=== PATIENT | male | born 1955 | race Caucasian/White ===

== ENCOUNTER 2024-05-24 12:50 | Emergency (ER) | payer MEDICARE ==
[~2024-05-24] VITALS: Ht 172.7 cm; Wt 59.8 kg
[2024-05-24 15:23] VITALS: BP 168/90; PULSE 79; RESP 15; TEMP 98.2; O2SAT 99
== END 2024-05-24 15:25 | disposition home or self-care (01) ==
LOC: ER 12:51
DX: U07.1 COVID-19 (principal)
CPT/HCPCS: 71045; 99283

== ENCOUNTER 2024-10-21 14:33 | Emergency (ER) | payer MEDICARE ==
[~2024-10-21] VITALS: Ht 172.7 cm; Wt 60.4 kg
[2024-10-21 15:06] VITALS: TEMP 98.4
[2024-10-21 15:58] LABS: BASOPHILS # (AUTO) 0.1 X10'3 (0-0.2); BASOPHILS % (AUTO) 0.8 % (0-1); EOSINOPHILS # (AUTO) 0.1 X10'3 (0-0.9); EOSINOPHILS % (AUTO) 1.1 % (0-6); HEMATOCRIT 42.2 % (42.0-52.0); HEMOGLOBIN 14.5 g/dl (14.0-17.9); LYMPHOCYTES # (AUTO) 1.3 X10'3 (1.1-4.8); LYMPHOCYTES % (AUTO) 16.7 % (21-51); MEAN CORPUSCULAR HEMOGLOBIN 31.1 PG (27.0-31.0); MEAN CORPUSCULAR HGB CONC 34.4 g/dL (33.0-36.5); MEAN CORPUSCULAR VOLUME 90.4 FL (78-98); MEAN PLATELET VOLUME 7.9 FL (7.4-10.4); MONOCYTES # (AUTO) 0.7 X10'3 (0-0.9); MONOCYTES % (AUTO) 9.2 % (2-12); NEUTROPHILS # (AUTO) 5.6 X10'3 (1.8-7.7); NEUTROPHILS % (AUTO) 72.2 % (42-75); PLATELET COUNT 301 X10'3 (140-440); RED BLOOD COUNT 4.67 X10'6 (4.70-6.10); RED CELL DISTRIBUTION WIDTH 13.4 % (11.5-14.5); WHITE BLOOD COUNT 7.8 X10'3 (4.5-11.0)
[2024-10-21 16:29] LABS: ALANINE AMINOTRANSFERASE 28 U/L (12-78); ALBUMIN 3.9 G/DL (3.4-5.0); ALBUMIN/GLOBULIN RATIO 1.1 (1.1-1.5); ALKALINE PHOSPHATASE 71 IU/L (46-116); ANION GAP 11 (8-16); ASPARTATE AMINO TRANSFERASE 17 U/L (10-37); BILIRUBIN,TOTAL 0.9 MG/DL (0.1-1.0); BLOOD UREA NITROGEN 14 MG/DL (7-18); BUN/CREATININE RATIO 15.4 (10.0-20.0); CALCIUM 9.3 MG/DL (8.5-10.1); CHLORIDE 103 MMOL/L (99-107); CREATININE 0.91 MG/DL (0.60-1.10); GLUCOSE 110 MG/DL (70-104); LIPASE 36 U/L (16-77); POTASSIUM 4.1 MMOL/L (3.5-5.1); SODIUM 139 MMOL/L (135-145); TOTAL CARBON DIOXIDE 24.8 MMOL/L (24-32); TOTAL PROTEIN 7.5 G/DL (6.4-8.2); eCRCL 65 ML/MIN; eGFR 82 ML/MIN
[2024-10-21 16:36] LABS: APTT 24 SECONDS (22-32); INR 1.1 INR; PROTHROMBIN TIME 11.2 SECONDS (9.0-12.0)
[2024-10-21 17:24] LABS: BILIRUBIN,URINE NEGATIVE (Neg); CLARITY,URINE CLEAR (Clear); COLOR,URINE STRAW (Yellow); GLUCOSE, URINE NEGATIVE (Neg); KETONES,URINE NEGATIVE (Neg); LEUKOCYTE ESTERASE ,URINE NEGATIVE (Neg); NITRITES, URINE NEGATIVE (Neg); OCCULT BLOOD,URINE LARGE (Neg); PROTEIN,URINE NEGATIVE (Neg); UROBILINOGEN,URINE 0.2 E.U/dL (0.2-1.0)
[2024-10-21 17:32] LABS: UA COLLECTION TYPE CLN CATCH MIDSTREAM
[2024-10-21 17:37] LABS: BACTERIA,URINE NONE SEEN /HPF (Neg); MUCUS STRANDS NONE SEEN /LPF (Neg); SQUAMOUS EPITHELIAL CELL,UR NONE SEEN /LPF (FEW); WBC,URINE 0-4 /HPF (0-4)
[2024-10-21] MEDS ORDERED: FLO0.4C PO (17:59)
[2024-10-21 18:24] VITALS: BP 146/77; PULSE 76; RESP 18; O2SAT 98
== END 2024-10-21 18:26 | disposition home or self-care (01) ==
LOC: ER 14:34
DX: N40.1 Benign prostatic hyperplasia with lower urinary tract symptoms (principal)
CPT/HCPCS: 36415; 74176; 80053; 81001; 83690; 85025; 85610; 85730; 99284

== ENCOUNTER 2024-10-25 09:20 | Emergency (ER) | payer MEDICARE ==
[~2024-10-25] VITALS: Ht 172.7 cm; Wt 48.1 kg
[~2024-10-25 09:20] MED LIST: FLO0.4C PO
[2024-10-25 09:49] LABS: BILIRUBIN,URINE NEGATIVE (Neg); CLARITY,URINE CLOUDY (Clear); COLOR,URINE YELLOW (Yellow); GLUCOSE, URINE NEGATIVE (Neg); KETONES,URINE NEGATIVE (Neg); LEUKOCYTE ESTERASE ,URINE TRACE (Neg); NITRITES, URINE NEGATIVE (Neg); OCCULT BLOOD,URINE LARGE (Neg); PROTEIN,URINE NEGATIVE (Neg); UROBILINOGEN,URINE 0.2 E.U/dL (0.2-1.0)
[2024-10-25 09:51] LABS: UA COLLECTION TYPE CLN CATCH MIDSTREAM
[2024-10-25 10:04] LABS: BACTERIA,URINE 1+ /HPF (Neg); RBC,URINE TNTC /HPF (0-2); SQUAMOUS EPITHELIAL CELL,UR FEW /LPF (FEW)
[2024-10-25 10:29] LABS: BASOPHILS % (AUTO) 0.8 % (0-1); EOSINOPHILS # (AUTO) 0.1 X10'3 (0-0.9); EOSINOPHILS % (AUTO) 1.3 % (0-6); HEMATOCRIT 42.7 % (42.0-52.0); HEMOGLOBIN 14.7 g/dl (14.0-17.9); LYMPHOCYTES # (AUTO) 1.1 X10'3 (1.1-4.8); LYMPHOCYTES % (AUTO) 19.8 % (21-51); MEAN CORPUSCULAR HEMOGLOBIN 30.7 PG (27.0-31.0); MEAN CORPUSCULAR HGB CONC 34.3 g/dL (33.0-36.5); MEAN CORPUSCULAR VOLUME 89.4 FL (78-98); MEAN PLATELET VOLUME 7.7 FL (7.4-10.4); MONOCYTES # (AUTO) 0.5 X10'3 (0-0.9); MONOCYTES % (AUTO) 8.7 % (2-12); NEUTROPHILS # (AUTO) 3.9 X10'3 (1.8-7.7); NEUTROPHILS % (AUTO) 69.4 % (42-75); PLATELET COUNT 266 X10'3 (140-440); RED BLOOD COUNT 4.78 X10'6 (4.70-6.10); RED CELL DISTRIBUTION WIDTH 13.4 % (11.5-14.5); WHITE BLOOD COUNT 5.6 X10'3 (4.5-11.0)
[2024-10-25 10:54] LABS: ALANINE AMINOTRANSFERASE 27 U/L (12-78); ALBUMIN 3.8 G/DL (3.4-5.0); ALBUMIN/GLOBULIN RATIO 1.1 (1.1-1.5); ALKALINE PHOSPHATASE 71 IU/L (46-116); ANION GAP 10 (8-16); ASPARTATE AMINO TRANSFERASE 15 U/L (10-37); BLOOD UREA NITROGEN 12 MG/DL (7-18); BUN/CREATININE RATIO 12.4 (10.0-20.0); CHLORIDE 103 MMOL/L (99-107); CREATININE 0.97 MG/DL (0.60-1.10); GLUCOSE 133 MG/DL (70-104); POTASSIUM 3.6 MMOL/L (3.5-5.1); SODIUM 138 MMOL/L (135-145); TOTAL CARBON DIOXIDE 25.4 MMOL/L (24-32); TOTAL PROTEIN 7.4 G/DL (6.4-8.2); eCRCL 48 ML/MIN; eGFR 77 ML/MIN
[2024-10-25] MEDS ORDERED: CEFU250T95 PO (14:00)
[2024-10-25] MEDS: cephalexin 250mg capsule PO ONE (14:05)
[2024-10-25 14:18] VITALS: BP 126/76; PULSE 78; RESP 16; TEMP 98.5; O2SAT 98
== END 2024-10-25 14:20 | disposition home or self-care (01) ==
LOC: ER 09:20
DX: N39.0 Urinary tract infection, site not specified (principal)
CPT/HCPCS: 36415; 80053; 81001; 85025; 87088; 99283

== ENCOUNTER 2025-06-12 13:00 | Emergency (ER) | payer MEDICARE ==
[~2025-06-12] VITALS: Ht 172.7 cm; Wt 59.6 kg
[~2025-06-12 13:00] MED LIST changes: +CEFU250T95 PO; -FLO0.4C PO
[2025-06-12 13:28] LABS: MEAN PLATELET VOLUME 7.6 FL (7.4-10.4); RED CELL DISTRIBUTION WIDTH 13.4 % (11.5-14.5)
[2025-06-12 13:38] LABS: CREATININE 0.82 MG/DL (0.60-1.10); TOTAL CARBON DIOXIDE 23.0 MMOL/L (24-32); eCRCL 70 ML/MIN; eGFR > 90 ML/MIN
--- NOTE | 2025-06-12 14:06 | RADIOLOGY REPORT ---
EXAM: CT CT STROKE ALERT HISTORY: Stroke Alert COMPARISON: None TECHNIQUE: Noncontrast axial CT images of the head were performed. Sagittal and coronal reformatted i mages were obtained. This CT exam was performed using 1 or more of the following dose reduction techn iques: Automated exposure control, adjustment of the mA and/or kv according to patient size, or the u se of iterative reconstruction techniques. Radiation Dose: CTDI volume is 52.62 mGy. Dose-length product is 1068.64 mGy*cm FINDINGS: There is mild global brain atrophy. There is minimal decreased attenuation in the periventricular whi te matter. No intracranial hemorrhage, mass, midline shift, hydrocephalus, or evidence of acute large vessel infarct. There is a small mucous retention cyst in the left maxillary sinus. The right jugula r bulb is high-riding. The bilateral mastoid air cells and middle ear spaces are clear. There is medi al bowing of the bilateral lamina papyracea. No cranial fracture or scalp edema. IMPRESSION: 1. No acute intracranial process. 2. Mild left maxillary sinus disease.
--- NOTE | 2025-06-12 14:12 | RADIOLOGY REPORT ---
EXAM: DI CHEST,SINGLE VIEW HISTORY: Stroke Alert COMPARISON: DI CHEST,SINGLE VIEW on DOS: 05/24/24 TECHNIQUE: PA upright view of the chest was performed. FINDINGS: No pneumothorax, consolidative infiltrates, or pulmonary edema. The heart is not enlarged. IMPRESSION: No acute intrathoracic process.
[2025-06-12 14:28] LABS: APTT 26 SECONDS (22-32); INR 1.1 INR
--- NOTE | 2025-06-12 15:28 | ELECTROCARDIOGRAPH REPORT ---
[facility] Test Date: 2025-06-12 Test Time: 15:26:38 Pat Name: BILL BROWN Department: [facility]- Patient ID: [facility]-[id number] Room: Gender: M [employer]: : 1955 Requested By: GEO MCDONALD Order Number: [id number] Reading MD: Measurements Intervals [place] Rate: 67 P: 69 [place]: 147 QRS: 55 QRSD: 96 T: 54 QT: 437 QTc: 462 Interpretive Statements Sinus rhythm Paired ventricular premature complexes LAE, consider biatrial enlargement Abnormal R-wave progression, early transition Minimal ST depression, inferior leads Baseline wander in lead(s) I,III,aVL,V6 Please click the below link to view image of tracing.
[2025-06-12 17:11] VITALS: TEMP 98.2
--- NOTE | 2025-06-12 17:30 | Physician Documentation ---
History of Present Illness ~ Chief Complaint: Confused Stated Complaint: "FUZZINESS IN HEAD"/DISORIENTED Time Seen by MD: 15:29 Primary Medical Doctor: none HPI Patient is seen today with the complaints of changes in his speech and some confusion that he states started a few days ago while he was in [place] and he was seen at an ER in [place] and had a CT scan done that did not show any conclusive sign of stroke, however patient states he was given a diagnosis of TIA and was started on some blood pressure medicine losartan, Plavix, and atorvastatin. Patient currently denies any chest pain but states he does feel some pressure in his frontal sinus area. Patient states he was feeling fine for a few days after that but then today was trying to get in to a primary care physician and was not having much success and states he was again feeling symptomatic in came in today to possibly get a MRI of his brain. Patient states he was having some slurred speech again today and also feeling a little confused today. Patient has no other concern or complaint at this time. Medication Reconciliation Allergies: Coded Allergies: No Known Allergies (Unverified , 06/12/25) Scheduled Cefuroxime Axetil (Cefuroxime), 1 TAB PO Q12H Past Medical History Past Medical History: No Pertinent History Past Surgical History: no surgical history Drug Use: none Lives In: Home Review of Systems Constitutional: Denies: chills, fever, weakness Eyes: Denies: pain, blurred vision ENT: Denies: ear pain, nose pain, throat pain, mouth pain Respiratory: Denies: cough, shortness of breath Cardiovascular: Denies: chest pain, palpitations Gastrointestinal: Denies: abdominal pain, nausea, vomiting Genitourinary: Denies: burning, dysuria Male Genitalia: Denies: penile discharge, testicular pain Neurological: Denies: headache, dizziness Musculoskeletal: Denies: pain, swelling Integumentary: Denies: rash, lesions Allergic/Immunologic: Denies: hives, itching Hematologic/Lymphatic: Denies: no symptoms reported Psychiatric: Denies: depression, anxiety Physical Exam Vital Signs: Temperature: 98.2, Source: Temporal, Heart Rate: 94, Respiratory Rate: 15, BP: 177/96, Pulse Oximetry: 99, Weight: 59.650 Oxygen Flow Rate: 0 General Appearance General: Awake and Alert, and oriented to person place and things, no acute distress. HEENT: Conjunctiva pink, Sclera clear, Mucus Membranes moist. Patient has no weakness of any facial muscles. Neck: Supple without masses and tenderness. Resp: Unlabored. Lungs clear to auscultation bilaterally. Heart: Regular Rate and rhythm, normal S1 and S2 without murmur, rub or gallop. Abdomen: Soft and non tender no organomegaly Musculoskeletal: Patient is neurovascularly intact and strength is intact of bilateral upper and lower extremities motor function is intact distally. Extremities: No cyanosis,clubbing or edema. Skin: Warm and Dry. Progress Results/Orders Results/Orders Vital Signs 06/12/25 06/12/25 06/12/25 06/12/25 13:08 17:11 17:11 17:13 Temp 97.0 98.2 Pulse 79 94 Resp 18 16 15 B/P (MAP) 179/108 177/96 (123) Pulse Ox 99 99 99 O2 Delivery Room Air* O2 Flow Rate 0 0 FiO2 21 Laboratory Tests Test 06/12/25 13:19 White Blood Count 8.8 Red Blood Count 5.25 Hemoglobin 15.4 Hematocrit 46.1 Mean Corpuscular Volume 87.7 Mean Corpuscular Hemoglobin 29.3 Mean Corpuscular Hemoglobin Concent 33.4 Red Cell Distribution Width 13.4 Platelet Count 312 Mean Platelet Volume 7.6 Neutrophils (%) (Auto) 67.7 Lymphocytes (%) (Auto) 21.1 Monocytes (%) (Auto) 8.9 Eosinophils (%) (Auto) 1.6 Basophils (%) (Auto) 0.7 Neutrophils # (Auto) 6.0 Lymphocytes # (Auto) 1.9 Monocytes # (Auto) 0.8 Eosinophils # (Auto) 0.1 Basophils # (Auto) 0.1 CBC Comment Prothrombin Time 10.9 INR International Normalized Ratio 1.1 Activated Partial Thromboplast Time 26 Coagulation Comments Sodium Level 139 Potassium Level 3.8 Chloride Level 104 Carbon Dioxide Level 23.0 L Anion Gap 12 Blood Urea Nitrogen 12 Creatinine 0.82 Estimated GFR/1.73 m2 > 90 BUN/Creatinine Ratio 14.6 Glucose Level 96 Calcium Level 9.6 Albumin 4.1 Chemistry Comments EKG/XRAY/CT/US/VASC/MRI EKG : Additional Comment EKG interpreted by myself today shows normal sinus rhythm, regular rate at 67 beats per minute, no ST segment elevation and no axis deviation. Chest X-Ray : Additional Comments Chest x-ray interpreted by myself today shows no large effusion, no large infiltrate, normal mediastinum. DIAGNOSTIC RADIOLOGY Patient: BILL BROWN Medical Record: [id number] [facility] : 1955, Age: 70 Sex: Male Location: ER Patient Status: REG ER Service Date/Time: 06/12/251320 Ordering Physician: GEO MCDONALD SOFTWARE LICENSING ANALYST Exam: CHEST,SINGLE VIEW EXAM: DI CHEST,SINGLE VIEW HISTORY: Stroke Alert COMPARISON: DI CHEST,SINGLE VIEW on DOS: 05/24/24 TECHNIQUE: PA upright view of the chest was performed. FINDINGS: No pneumothorax, consolidative infiltrates, or pulmonary edema. The heart is not enlarged. IMPRESSION: No acute intrathoracic process. Electronically Signed by:MAEGAN SALGADO MD Date & Time: 06/12/251409 Dictated by: MAEGAN SALGADO MD Dictation date and time: 06/12/251409 Primary Care Provider: NO PRIMARY CARE PROVIDER cc: GEO MCDONALD SOFTWARE LICENSING ANALYST ~ CT : Impression CAT SCAN Patient: BILL BROWN Medical Record: [id number] [facility] : 1955, Age: 70 Sex: Male Location: ER Patient Status: REG ER Service Date/Time: 06/12/251346 Ordering Physician: GEO CMDONALD SOFTWARE LICENSING ANALYST Exam: CT STROKE ALERT EXAM: CT CT STROKE ALERT HISTORY: Stroke Alert COMPARISON: None TECHNIQUE: Noncontrast axial CT images of the head were performed. Sagittal and coronal reformatted images were obtained. This CT exam was performed using 1 or more of the following dose reduction techniques: Automated exposure control, adjustment of the mA and/or kv according to patient size, or the use of iterative reconstruction techniques. Radiation Dose: CTDI volume is 52.62 mGy. Dose-length product is 1068.64 mGy*cm FINDINGS: There is mild global brain atrophy. There is minimal decreased attenuation in the periventricular white matter. No intracranial hemorrhage, mass, midline shift, hydrocephalus, or evidence of acute large vessel infarct. There is a small mucous retention cyst in the left maxillary sinus. The right jugular bulb is high-riding. The bilateral mastoid air cells and middle ear spaces are clear. There is medial bowing of the bilateral lamina papyracea. No cranial fracture or scalp edema. IMPRESSION: 1. No acute intracranial process. 2. Mild left maxillary sinus disease. Electronically Signed by:MAEGAN SALGADO MD Date & Time: 06/12/251403 Dictated by: MAEGAN SALGADO MD Dictation date and time: 06/12/251403 Primary Care Provider: NO PRIMARY CARE PROVIDER cc: GEO MCDONALD SOFTWARE LICENSING ANALYST ~ Medical Decision Making Findings Patient is seen today with the complaints of changes in his speech and some confusion that he states started a few days ago while he was in [place] and he was seen at an ER in [place] and had a CT scan done that did not show any conclusive sign of stroke, however patient states he was given a diagnosis of TIA and was started on some blood pressure medicine losartan, Plavix, and atorvastatin. Patient currently denies any chest pain but states he does feel some pressure in his frontal sinus area. Patient states he was feeling fine for a few days after that but then today was trying to get in to a primary care physician and was not having much success and states he was again feeling symptomatic in came in today to possibly get a MRI of his brain. Patient states he was having some slurred speech again today and also feeling a little confused today. Patient has no other concern or complaint at this time. Patient did have labs drawn that were unremarkable, CT scan of head was also unremarkable without any significant sign of acute stroke hemorrhagic or ischemic. Patient will follow up outpatient for referral for MRI of brain as well as referral to Neurology for further eval and treatment. Patient will return to ED with any worsening, concerning or changing symptoms. Departure Disposition: 01 HOME / SELF CARE / HOMELESS Impression: Primary Impression: Acute confusion Condition: Improved Discharge Instructions: Confusion Additional Instructions: Patient did have labs drawn that were unremarkable, CT scan of head was also unremarkable without any significant sign of acute stroke hemorrhagic or ischemic. Patient will follow up outpatient for referral for MRI of brain as well as referral to Neurology for further eval and treatment. Patient will return to ED with any worsening, concerning or changing symptoms. Referrals: NO PRIMARY CARE PROVIDER (PCP) Additional Comment Additional Comment Patient declined admission to the hospital at this time. Signature Scribe Signature: No scribe Attestation: No scribe HILDA KNIGHT [facility] Jun 12, 2025 17:30
[2025-06-12 18:03] VITALS: BP 128/83; PULSE 80; RESP 12; O2SAT 99
== END 2025-06-12 18:05 | disposition home or self-care (01) ==
LOC: ER 13:01
DX: R41.0 Disorientation, unspecified (principal); R47.81 Slurred speech; I49.8 Other specified cardiac arrhythmias
CPT/HCPCS: 36415; 70450; 71045; 80048; 85025; 85610; 85730; 93005; 99285